=== PATIENT | male | born 1940 | race Caucasian/White ===

== ENCOUNTER 2016-11-22 19:25 | Emergency (ER) | payer MEDICARE ==
[~2016-11-22] VITALS: Ht 167.6 cm; Wt 87.0 kg
[~2016-11-22 19:25] MED LIST: ADVIL200 MG OR; ASA LO-DOSE81 MG OR; ASPIRIN EC81 MG PO; ATORVASTATIN CA40 MG PO; AVELOX400 MG PO; BAYER LOW81 MG PO; CIPROFLOXACN500 MG PO; DOXYCYCL HYC100 M4 PO; FIORICET PO; FLONASE NASAL50 MCG; ISOSORB MONO30 MG OR; LANSOPRAZOLE15 MG; LANSOPRAZOLE15 MG PO; LISINOPRIL10 MG PO; LISINOPRIL2.5 MG PO; LORTAB 10 PO; LORTAB 10-325 M1 TAB PO; LORTAB 5 OR; LORTAB 5/3255 MG PO; MAVIK2 MG PO; METO25TAB PO; METO50TA52 PO; METRONIDAZOL500 MG PO; NEXIUM40 M1 OR; PHENERGAN25 MG/TAB PO; PLAVIX75 MG PO; PRAVACHOL40 MG OR; PRAVACHOL40 MG PO; PRAVACHOL80 MG PO; PREVACID15 M1 PO; PRILOSEC20 MG OR; PROTONIX40 M2 PO; TOPAMAX50 MG PO; TOPROL XL25 M1 OR; ZPAK PO; [UNRECOGNIZED DRUG - OTHER]
[2016-11-22 19:56] LABS: HEMATOCRIT 40.7 % (39.0-50.0); HEMOGLOBIN 13.9 g/dl (14.0-18.0); IMMATURE GRANULOCYTES 0.3 % (0.0-1.0); MEAN CELL VOLUME 91.7 fL CALC (80.0-100.0); MEAN CORPUSCULAR HGB 31.3 pG CALC (26.0-32.0); MEAN CORPUSCULAR HGB CONC 34.2 g/L CALC (32.0-36.0); NEUT# 4.65 thou/uL (1.82-7.42); RED BLOOD COUNT 4.44 mill/uL (4.70-6.10); RED CELL DISTRI WIDTH 13.3 % (11.5-15.5)
[2016-11-22 20:18] LABS: ALBUMIN 4.5 g/dL (3.2-5.0); ALKALINE PHOSPHATASE 49 u/l (38-126); ANION GAP 14 (6-22 (CALC)); BILIRUBIN, TOTAL 0.6 mg/dL (0.0-1.4); BUN 16 mg/dL (8-23); BUN/CREATININE RATIO 17 (12-20 (CALC)); CALCIUM 9.6 mg/dL (8.4-10.2); CARBON DIOXIDE 27 mmol/l (22-30); CHLORIDE 102 mmol/l (95-108); CREATININE 0.9 mg/dL (0.7-1.3); GFR > 60 ML/MIN (>=60 (CALC)); GFR FOR AFR.AMER. > 60 ML/MIN (>=60 (CALC)); GLUCOSE 102 mg/dL (82-115); POTASSIUM 4.3 mmol/l (3.5-5.1); SGOT/AST 23 u/l (19-48); SGPT/ALT 26 u/l (11-66); SODIUM 138 mmol/l (137-146); TOTAL PROTEIN 7.3 g/dL (6.3-8.2)
[2016-11-22 20:27] LABS: MYOGLOBIN 73 ng/mL (0 - 121)
[2016-11-22] MEDS ORDERED: ULTRAM50 M1 PO (21:47)
[2016-11-22 22:10] VITALS: BP 118/59
== END 2016-11-22 22:10 | disposition home or self-care (01) ==
LOC: ED 19:25
DX: M79.605 Pain in left leg (principal); M79.604 Pain in right leg; T67.5XXA Heat exhaustion, unspecified, initial encounter; X30.XXXA Exposure to excessive natural heat, initial encounter; Y93.H9 Activity, other involving exterior property and land maintenance, building and construction; Y92.008 Other place in unspecified non-institutional (private) residence as the place of occurrence of the external cause; I10 Essential (primary) hypertension

== ENCOUNTER 2017-07-17 12:39 | Emergency (ER) | payer MEDICARE ==
[~2017-07-17] VITALS: Ht 165.1 cm; Wt 89.0 kg
[~2017-07-17 12:39] MED LIST changes: +LISINOPRIL20 M1 PO; +MAGNESIUM250 M1 PO; +RANITIDINE75 M3 PO; +ULTRAM50 M1 PO
[2017-07-17] MEDS ORDERED: PERCOCET 5/325M1 TAB PO (14:52)
[2017-07-17] MEDS ORDERED: CLEOCIN150 MG PO (14:52)
[2017-07-17 15:04] VITALS: BP 143/72
== END 2017-07-17 15:16 | disposition home or self-care (01) ==
LOC: ED 12:39
PROC: 0HDQXZZ Extraction of Finger Nail, External Approach (ICD-10-PCS; principal; 2017-07-17)
DX: S67.193A Crushing injury of left middle finger, initial encounter (principal); S62.633A Displaced fracture of distal phalanx of left middle finger, initial encounter for closed fracture; S61.303A Unspecified open wound of left middle finger with damage to nail, initial encounter; W27.8XXA Contact with other nonpowered hand tool, initial encounter; I10 Essential (primary) hypertension; Z95.5 Presence of coronary angioplasty implant and graft

== ENCOUNTER 2017-07-20 07:32 | Day surgery (SDC) | payer MEDICARE ==
[~2017-07-20] VITALS: Ht 165.1 cm; Wt 86.2 kg
[~2017-07-20 07:32] MED LIST changes: +CLEOCIN150 MG PO; +PERCOCET 5/325M1 TAB PO
[2017-07-20 10:33] VITALS: BP 138/81
== END 2017-07-20 10:47 | disposition home or self-care (01) ==
LOC: ENDO 07:32 → ORM 09:45 → ENDO 10:47
PROVIDERS: ATTEND Surgery
PROC: 0DJD8ZZ Inspection of Lower Intestinal Tract, Via Natural or Artificial Opening Endoscopic (ICD-10-PCS; principal; 2017-07-20)
DX: Z12.11 Encounter for screening for malignant neoplasm of colon (principal); R10.32 Left lower quadrant pain; K57.30 Diverticulosis of large intestine without perforation or abscess without bleeding; I10 Essential (primary) hypertension; E78.00 Pure hypercholesterolemia, unspecified; M19.90 Unspecified osteoarthritis, unspecified site

== ENCOUNTER 2018-01-29 09:58 | Emergency (ER) | payer MEDICARE ==
[~2018-01-29] VITALS: Ht 165.1 cm; Wt 85.0 kg
[2018-01-29] MEDS ORDERED: CIPROFLOXACN0.3 % OD (10:32)
[2018-01-29 10:40] VITALS: BP 153/73
== END 2018-01-29 10:41 | disposition home or self-care (01) ==
LOC: ED 09:58
PROC: 08C Eye, Extirpation (ICD-10-PCS; principal; 2018-01-29)
DX: T15.01XA Foreign body in cornea, right eye, initial encounter (principal); H02.841 Edema of right upper eyelid; X58.XXXA Exposure to other specified factors, initial encounter; Y93.E9 Activity, other interior property and clothing maintenance; Y92.008 Other place in unspecified non-institutional (private) residence as the place of occurrence of the external cause

== ENCOUNTER → 2018-08-02 | Outpatient (REF) | payer MEDICARE ==
[~2018-08-02] MED LIST changes: +CIPROFLOXACN0.3 % OD
[2018-08-02 08:28] LABS: ALBUMIN 4.1 g/dL (3.2-5.0); ALKALINE PHOSPHATASE 48 u/l (38-126); ANION GAP 14 (6-22 (CALC)); BUN 20 mg/dL (8-23); BUN/CREATININE RATIO 18 (12-20 (CALC)); C-REACTIVE PROTEIN 0.6 mg/dL (0-0.9); CALCULATED LDLCHOLESTEROL 123 mg/dL (62-129 (CALC)); CARBON DIOXIDE 27 mmol/l (22-30); CHLORIDE 103 mmol/l (95-108); CHOLESTEROL HDL RATIO 3.1 (<4.4 (CALC)); CREATININE 1.1 mg/dL (0.7-1.3); GFR > 60 ML/MIN (>=60 (CALC)); GFR FOR AFR.AMER. > 60 ML/MIN (>=60 (CALC)); HDL CHOLESTEROL 74 mg/dL (>=40); POTASSIUM 4.3 mmol/l (3.5-5.1); SGOT/AST 20 u/l (19-48); SODIUM 140 mmol/l (137-146); TOTAL CHOLESTEROL 229 mg/dl (0-199); TOTAL PROTEIN 6.5 g/dL (6.3-8.2); TOTAL TRIGLYCERIDES 160 mg/dl (30-149); VLDL CHOLESTROL 32 mg/dl (0-38 (CALC))
[2018-08-02 08:51] LABS: TSH, 3RD GENERATION 2.12 uIU/mL (0.47 - 4.68)
== END | disposition home or self-care (01) ==
LOC: LAB 06:53
PROVIDERS: ATTEND Nurse Practitioner
DX: E78.49 Other hyperlipidemia (principal); I10 Essential (primary) hypertension; M35.3 Polymyalgia rheumatica

== ENCOUNTER 2018-10-11 21:39 | Emergency (ER) | payer MEDICARE ==
[~2018-10-11] VITALS: Ht 165.1 cm; Wt 95.4 kg
[2018-10-11 22:17] LABS: HEMATOCRIT 41.6 % (39.0-50.0); HEMOGLOBIN 13.6 g/dl (14.0-18.0); IMMATURE GRANULOCYTES 0.4 % (0.0-5.0); MEAN CELL VOLUME 94.8 fL CALC (80.0-100.0); MEAN CORPUSCULAR HGB CONC 32.7 g/L CALC (32.0-36.0); RED BLOOD COUNT 4.39 mill/uL (4.70-6.10); RED CELL DISTRI WIDTH 13.5 % (11.5-15.5)
[2018-10-11 22:46] LABS: ALBUMIN 3.9 g/dL (3.2-5.0); ALKALINE PHOSPHATASE 47 u/l (38-126); ANION GAP 12 (6-22 (CALC)); BUN 24 mg/dL (8-23); BUN/CREATININE RATIO 28 (12-20 (CALC)); CARBON DIOXIDE 26 mmol/l (22-30); CHLORIDE 107 mmol/l (95-108); CPK 186 u/l (52-200); CREATININE 0.9 mg/dL (0.7-1.3); GFR > 60 ML/MIN (>=60 (CALC)); GFR FOR AFR.AMER. > 60 ML/MIN (>=60 (CALC)); POTASSIUM 4.1 mmol/l (3.5-5.1); SGOT/AST 26 u/l (19-48); SODIUM 141 mmol/l (137-146); TOTAL PROTEIN 6.1 g/dL (6.3-8.2)
[2018-10-11 22:48] LABS: BILIRUBIN, TOTAL 0.3 mg/dL (0.0-1.4)
[2018-10-11 22:55] LABS: MYOGLOBIN 140 ng/mL (0 - 121)
[2018-10-12] MEDS ORDERED: FLEXERIL PO (00:04)
[2018-10-12 00:15] VITALS: BP 140/72
== END 2018-10-12 00:15 | disposition home or self-care (01) ==
LOC: ED 21:39
PROVIDERS: Emergency Medicine
DX: R25.2 Cramp and spasm (principal); R45.1 Restlessness and agitation; I10 Essential (primary) hypertension; Z95.5 Presence of coronary angioplasty implant and graft; R68.83 Chills (without fever)
CPT/HCPCS: J2060

== ENCOUNTER 2019-01-05 08:34 | Observation (INO) | payer MEDICARE ==
[~2019-01-05] VITALS: Ht 165.1 cm; Wt 97.7 kg
[~2019-01-05 08:34] MED LIST changes: +FLEXERIL PO
[2019-01-05] MEDS ORDERED: OS-CAL 500500 M1 PO (09:09)
[2019-01-05] MEDS ORDERED: PREDNISONE10 MG PO (09:10)
[2019-01-05 09:18] LABS: HEMATOCRIT 41.3 % (39.0-50.0); IMMATURE GRANULOCYTES 0.6 % (0.0-5.0); MEAN CELL VOLUME 92.8 fL CALC (80.0-100.0); MEAN CORPUSCULAR HGB 31.5 pG CALC (26.0-32.0); MEAN CORPUSCULAR HGB CONC 33.9 g/L CALC (32.0-36.0); NEUT# 6.87 thou/uL (1.82-7.42); RED BLOOD COUNT 4.45 mill/uL (4.70-6.10); RED CELL DISTRI WIDTH 13.4 % (11.5-15.5)
[2019-01-05 09:36] LABS: ANION GAP 14 (6-22 (CALC)); BUN 15 mg/dL (8-23); BUN/CREATININE RATIO 18 (12-20 (CALC)); CARBON DIOXIDE 27 mmol/l (22-30); CHLORIDE 103 mmol/l (95-108); CREATININE 0.8 mg/dL (0.7-1.3); GFR > 60 ML/MIN (>=60 (CALC)); GFR FOR AFR.AMER. > 60 ML/MIN (>=60 (CALC)); POTASSIUM 4.3 mmol/l (3.5-5.1); SODIUM 139 mmol/l (137-146)
[2019-01-05 11:15] VITALS: BP 160/75
[2019-01-05 11:19] LABS: URINE BILIRUBIN - DIPSTICK NEGATIVE (NEGATIVE); URINE BLOOD DIPSTICK TRACE-LYSED (NEGATIVE); URINE COLOR YELLOW; URINE GLUCOSE - DIPSTICK NEGATIVE (NEGATIVE); URINE KETONE NEGATIVE (NEGATIVE); URINE LEUK ESTERASE SMALL (NEGATIVE); URINE NITRITE - DIPSTICK NEGATIVE (Negative); URINE PH 6.5 (4.5-8.0); URINE PROTEIN - DIPSTICK NEGATIVE (NEG-TRACE); URINE SPECIFIC GRAVITY <=1.005; URINE UROBILINOGEN - DIPSTICK 0.2 E.U./dL (0.2)
[2019-01-05 11:28] LABS: URINE RBC 0-2 RBC/hpf (0-5)
[2019-01-05 15:43] VITALS: BP 128/74
[2019-01-05 20:40] VITALS: BP 131/70
[2019-01-06 00:15] VITALS: BP 109/63
[2019-01-06 04:53] VITALS: BP 112/71
[2019-01-06 05:01] LABS: CHOLESTEROL HDL RATIO 2.9 (<4.4 (CALC)); MAGNESIUM 1.9 mg/dL (1.6-2.3)
[2019-01-06 07:15] VITALS: BP 131/73
[2019-01-06 11:25] VITALS: BP 127/64
[2019-01-06] MEDS ORDERED: PROTONIX40 M2 PO (12:12)
== END 2019-01-06 13:37 | disposition home or self-care (01) ==
LOC: ED 08:34 → ED-I 09:19 → ED 09:19 → MS2 09:59
PROVIDERS: Family Medicine; ADMIT Internal Medicine; ATTEND Internal Medicine
DX: R07.9 Chest pain, unspecified (principal); R10.13 Epigastric pain; I10 Essential (primary) hypertension; I25.10 Atherosclerotic heart disease of native coronary artery without angina pectoris; E78.5 Hyperlipidemia, unspecified; K21.9 Gastro-esophageal reflux disease without esophagitis; T47.0X6A Underdosing of histamine H2-receptor blockers, initial encounter; Z91.128 Patient's intentional underdosing of medication regimen for other reason; Z87.891 Personal history of nicotine dependence; Z79.52 Long term (current) use of systemic steroids; Z95.5 Presence of coronary angioplasty implant and graft; R82.71 Bacteriuria

== ENCOUNTER 2020-01-28 06:39 | Observation (INO) | payer MEDICARE ==
[~2020-01-28] VITALS: Ht 165.1 cm; Wt 99.2 kg
[~2020-01-28 06:39] MED LIST changes: +OS-CAL 500500 M1 PO; +PREDNISONE10 MG PO
[2020-01-28 07:07] LABS: HEMATOCRIT 40.7 % (39.0-50.0); IMMATURE GRANULOCYTES 0.5 % (0.0-5.0); MEAN CELL VOLUME 92.7 fL CALC (80.0-100.0); MEAN CORPUSCULAR HGB 29.6 pG CALC (26.0-32.0); MEAN CORPUSCULAR HGB CONC 31.9 g/dL CAL (32.0-36.0); NEUT# 6.46 thou/uL (1.82-7.42); RED BLOOD COUNT 4.39 mill/uL (4.70-6.10); RED CELL DISTRI WIDTH 13.8 % (11.5-15.5)
[2020-01-28] MEDS ORDERED: ISOSORB DIN10 MG PO (07:17)
[2020-01-28 07:29] LABS: ANION GAP 9 (6-22 (CALC)); BUN 25 mg/dL (8-23); BUN/CREATININE RATIO 30 (12-20 (CALC)); CARBON DIOXIDE 27 mmol/l (22-30); CHLORIDE 102 mmol/l (95-108); CREATININE 0.8 mg/dL (0.7-1.3); GFR > 60 ML/MIN (>=60 (CALC)); GFR FOR AFR.AMER. > 60 ML/MIN (>=60 (CALC)); POTASSIUM 4.1 mmol/l (3.5-5.1); SODIUM 134 mmol/l (137-146)
[2020-01-28 10:18] VITALS: BP 138/68
[2020-01-28 12:11] LABS: TSH, 3RD GENERATION 2.38 uIU/mL (0.47 - 4.68)
[2020-01-28 15:46] VITALS: BP 130/58
[2020-01-28 18:43] VITALS: BP 145/75
[2020-01-28 23:21] VITALS: BP 107/52
[2020-01-29 04:00] VITALS: BP 148/76
[2020-01-29 08:00] VITALS: BP 134/78
[2020-01-29 11:16] VITALS: BP 113/46; BP 113/50
[2020-01-29 11:17] VITALS: BP 117/50
== END 2020-01-29 12:50 | disposition home or self-care (01) ==
LOC: ED 06:39 → ED-I 07:39 → ED 08:05 → ED-I 08:06 → MS2 08:06
PROVIDERS: Family Medicine; Nurse Practitioner Family; ADMIT Internal Medicine; ATTEND Internal Medicine
DX: I25.119 Atherosclerotic heart disease of native coronary artery with unspecified angina pectoris (principal); R00.1 Bradycardia, unspecified; R55 Syncope and collapse; T46.3X5A Adverse effect of coronary vasodilators, initial encounter; I10 Essential (primary) hypertension; E78.5 Hyperlipidemia, unspecified; G47.30 Sleep apnea, unspecified; K21.9 Gastro-esophageal reflux disease without esophagitis; Z95.5 Presence of coronary angioplasty implant and graft; M35.3 Polymyalgia rheumatica; Z87.891 Personal history of nicotine dependence; Z79.82 Long term (current) use of aspirin; Z91.19 Patient's noncompliance with other medical treatment and regimen; Z20.828 Contact with and (suspected) exposure to other viral communicable diseases
CPT/HCPCS: G0378

== ENCOUNTER 2020-04-26 07:34 | Emergency (ER) | payer MEDICARE ==
[~2020-04-26] VITALS: Ht 167.6 cm; Wt 98.0 kg
[~2020-04-26 07:34] MED LIST changes: +ISOSORB DIN10 MG PO
[2020-04-26 07:51] VITALS: BP 167/93
[2020-04-26] MEDS ORDERED: METOPROL TAR25 MG PO (09:00)
[2020-04-26] MEDS ORDERED: MEDDOSEPAK PO (10:08)
[2020-04-26] MEDS ORDERED: ULTRAM50 M1 PO (10:08)
== END 2020-04-26 10:19 | disposition home or self-care (01) ==
LOC: ED 07:34
DX: S46.212A Strain of muscle, fascia and tendon of other parts of biceps, left arm, initial encounter (principal); I10 Essential (primary) hypertension; X50.0XXA Overexertion from strenuous movement or load, initial encounter; Y93.9 Activity, unspecified; Y92.009 Unspecified place in unspecified non-institutional (private) residence as the place of occurrence of the external cause; Z95.5 Presence of coronary angioplasty implant and graft

== ENCOUNTER 2020-08-23 10:31 | Emergency (ER) | payer MEDICARE ==
[~2020-08-23] VITALS: Ht 167.6 cm; Wt 104.5 kg
[~2020-08-23 10:31] MED LIST changes: +MEDDOSEPAK PO; +METOPROL TAR25 MG PO
[2020-08-23] MEDS ORDERED: OMNI-PAC300 MG PO (10:44)
[2020-08-23] MEDS ORDERED: BACTRIM DS1 TAB PO (10:44)
[2020-08-23 10:48] VITALS: BP 194/88
== END 2020-08-23 11:09 | disposition home or self-care (01) ==
LOC: ED 10:31
DX: L03.315 Cellulitis of perineum (principal); L02.215 Cutaneous abscess of perineum; I10 Essential (primary) hypertension; Z95.5 Presence of coronary angioplasty implant and graft

== ENCOUNTER 2021-11-08 06:27 | Emergency (ER) | payer MEDICARE ==
[~2021-11-08] VITALS: Ht 167.6 cm; Wt 97.2 kg
[2021-11-08] VITALS (11 sets, daily range): BP systolic 114–163; BP diastolic 60–76
[~2021-11-08 06:27] MED LIST changes: +BACTRIM DS1 TAB PO; +OMNI-PAC300 MG PO
[2021-11-08 07:42] LABS: HEMOGLOBIN 14.2 g/dl (14.0-18.0); IMMATURE GRANULOCYTES 0.1 % (0.0-5.0); MEAN CELL VOLUME 94.5 fL CALC (80.0-100.0); MEAN CORPUSCULAR HGB 31.2 pG CALC (26.0-32.0); NEUT# 5.2 thou/uL (1.82-7.42); RED BLOOD COUNT 4.55 mill/uL (4.70-6.10); RED CELL DISTRI WIDTH 14.1 % (11.5-15.5)
[2021-11-08 07:50] LABS: ACT PARTIAL THROMBO TIME 25.9 SECONDS (20.0-32.5); INTERNATIONAL NORMALIZED RATIO 0.9 RATIO (0.7-1.3); PROTHROMBIN TIME 9.8 SECONDS (9.0-12.5)
[2021-11-08 07:52] LABS: ALBUMIN 4.1 g/dL (3.2-5.0); ALKALINE PHOSPHATASE 58 u/l (38-126); AMYLASE 76 u/l (30-110); ANION GAP 11 (6-22 (CALC)); BILIRUBIN, TOTAL 0.4 mg/dL (0.0-1.4); BUN 16 mg/dL (8-23); BUN/CREATININE RATIO 18 (12-20 (CALC)); CARBON DIOXIDE 28 mmol/l (22-30); CHLORIDE 104 mmol/l (95-108); CREATININE 0.9 mg/dL (0.7-1.3); GFR > 60 ML/MIN (>=60 (CALC)); GFR FOR AFR.AMER. > 60 ML/MIN (>=60 (CALC)); LIPASE 71 u/l (23-300); POTASSIUM 4.5 mmol/l (3.5-5.1); SGOT/AST 28 u/l (19-48); SODIUM 138 mmol/l (137-146); TOTAL PROTEIN 7.1 g/dL (6.3-8.2)
[2021-11-08] MEDS ORDERED: PAXLOVID PO ×2 (08:12→08:30)
[2021-11-08] MEDS ORDERED: ZOFRAN4 MG/TAB PO ×2 (08:13→08:30)
[2021-11-08] MEDS ORDERED: TESSALON PERLE100 MG PO ×2 (08:13→08:30)
== END 2021-11-08 09:26 | disposition home or self-care (01) ==
LOC: ED 06:27
DX: U07.1 COVID-19 (principal); R07.9 Chest pain, unspecified; R11.2 Nausea with vomiting, unspecified; R05.9 Cough, unspecified; R52 Pain, unspecified; I10 Essential (primary) hypertension; I25.10 Atherosclerotic heart disease of native coronary artery without angina pectoris; Z95.5 Presence of coronary angioplasty implant and graft

== ENCOUNTER 2022-04-28 13:17 | Emergency (ER) | payer MEDICARE ==
[2022-04-28] VITALS (13 sets, daily range): BP systolic 132–160; BP diastolic 65–88
[~2022-04-28] VITALS: Ht 167.6 cm; Wt 79.1 kg
[~2022-04-28 13:17] MED LIST changes: +PAXLOVID PO; +TESSALON PERLE100 MG PO; +ZOFRAN4 MG/TAB PO
[2022-04-28] MEDS ORDERED: TRAMADOL HYDROC50 M1 PO (16:34)
[2022-04-28] MEDS ORDERED: KEFLEX500 MG PO (16:34)
== END 2022-04-28 16:56 | disposition home or self-care (01) ==
LOC: ED 13:17
PROC: 0JQK0ZZ Repair Left Hand Subcutaneous Tissue and Fascia, Open Approach (ICD-10-PCS; principal; 2022-04-28)
DX: S61.412A Laceration without foreign body of left hand, initial encounter (principal); S66.127A Laceration of flexor muscle, fascia and tendon of left little finger at wrist and hand level, initial encounter; I10 Essential (primary) hypertension; W27.8XXA Contact with other nonpowered hand tool, initial encounter; Y93.89 Activity, other specified; Z95.5 Presence of coronary angioplasty implant and graft

== ENCOUNTER 2022-10-15 09:15 | Emergency (ER) | payer MEDICARE ==
[~2022-10-15] VITALS: Ht 167.6 cm; Wt 96.6 kg
[~2022-10-15 09:15] MED LIST changes: +KEFLEX500 MG PO; +TRAMADOL HYDROC50 M1 PO
[2022-10-15 09:36] LABS: BASO% 0.1 % (0-3); EOS% 0.5 % (0-8); HEMATOCRIT 41.8 % (39.0-50.0); HEMOGLOBIN 13.6 g/dl (14.0-18.0); IMMATURE GRANULOCYTES 0.2 % (0.0-5.0); LYMPH% 8.4 % (15-41); MEAN CELL VOLUME 92.1 fL CALC (80.0-100.0); MEAN CORPUSCULAR HGB CONC 32.5 g/dL CAL (32.0-36.0); MONO% 4.9 % (2-13); NEUT# 12.72 thou/uL (1.82-7.42); NEUT% 85.9 % (42-76); RED BLOOD COUNT 4.54 mill/uL (4.70-6.10)
[2022-10-15 09:58] LABS: ALBUMIN 4.1 g/dL (3.2-5.0); ALKALINE PHOSPHATASE 60 u/l (38-126); BUN 14 mg/dL (8-23); BUN/CREATININE RATIO 15 (12-20 (CALC)); CARBON DIOXIDE 28 mmol/l (22-30); CHLORIDE 101 mmol/l (95-108); GFR FOR AFR.AMER. > 60 ML/MIN (>=60 (CALC)); GFR OTHER RACES > 60 ML/MIN (>=60 (CALC)); LIPASE 56 u/l (23-300); SGOT/AST 22 u/l (19-48); SODIUM 136 mmol/l (137-146); TOTAL PROTEIN 6.7 g/dL (6.3-8.2)
[2022-10-15 09:59] LABS: ANION GAP 11 (6-22 (CALC)); POTASSIUM 4.1 mmol/l (3.5-5.1)
[2022-10-15 10:41] VITALS: BP 147/71
[2022-10-15 11:01] VITALS: BP 106/63
[2022-10-15 11:31] VITALS: BP 131/62
[2022-10-15 11:35] LABS: URINE BILIRUBIN - DIPSTICK NEGATIVE (NEGATIVE); URINE BLOOD DIPSTICK TRACE-INTACT (NEGATIVE); URINE COLOR YELLOW; URINE GLUCOSE - DIPSTICK NEGATIVE (NEGATIVE); URINE KETONE NEGATIVE (NEGATIVE); URINE PH 6.5 (4.5-8.0); URINE PROTEIN - DIPSTICK NEGATIVE (NEG-TRACE); URINE UROBILINOGEN - DIPSTICK 0.2 E.U./dL (0.2)
[2022-10-15 11:41] LABS: URINE LEUK ESTERASE MODERATE (NEGATIVE); URINE NITRITE - DIPSTICK NEGATIVE (Negative)
[2022-10-15 11:42] LABS: URINE BACTERIA MANY hpf; URINE RBC 0-2 RBC/hpf (0-5)
[2022-10-15 12:31] VITALS: BP 133/53
[2022-10-15] MEDS ORDERED: OMNICEF300 M1 PO (13:46)
[2022-10-15 13:52] VITALS: BP 133/53
== END 2022-10-15 14:10 | disposition home or self-care (01) ==
LOC: ED 09:15
PROVIDERS: Family Medicine
DX: N39.0 Urinary tract infection, site not specified (principal); B95.2 Enterococcus as the cause of diseases classified elsewhere; I10 Essential (primary) hypertension; Z95.5 Presence of coronary angioplasty implant and graft
CPT/HCPCS: Q9967

== ENCOUNTER 2022-11-09 08:09 | Emergency (ER) | payer MEDICARE ==
[~2022-11-09] VITALS: Ht 167.6 cm; Wt 97.5 kg
[2022-11-09] VITALS (8 sets, daily range): BP systolic 136–153; BP diastolic 55–68
[~2022-11-09 08:09] MED LIST changes: +OMNICEF300 M1 PO
[2022-11-09] MEDS ORDERED: VOLTAREN1%GEL TOP (10:00)
[2022-11-09] MEDS ORDERED: FLEXERIL5 M1 PO (10:00)
[2022-11-09] MEDS ORDERED: NAPROXEN500 MG PO (10:00)
[2022-11-09] MEDS ORDERED: TRAMADOL HYDROC50 M1 PO (10:00)
== END 2022-11-09 10:27 | disposition home or self-care (01) ==
LOC: ED 08:09
DX: M25.512 Pain in left shoulder (principal); I10 Essential (primary) hypertension; Z95.5 Presence of coronary angioplasty implant and graft